=== PATIENT | male | born 1970 | race Caucasian/White ===

== ENCOUNTER 2021-03-16 07:37 | Outpatient (CLI) | payer OTHER | END 2021-03-16 07:38 | disposition home or self-care (01) | LOC: PET 07:37 | PROVIDERS: ATTEND Internal Medicine Hematology & Oncology | DX: C82.11 Follicular lymphoma grade II, lymph nodes of head, face, and neck (principal); R93.7 Abnormal findings on diagnostic imaging of other parts of musculoskeletal system; K80.20 Calculus of gallbladder without cholecystitis without obstruction | CPT/HCPCS: 78815; A9552 ==

== ENCOUNTER 2021-03-17 08:21 | Day surgery (SDC) | payer OTHER ==
[2021-03-15 13:57] VITALS: BMI 20.7
[~2021-03-17 08:21] MED LIST: Prevnar 13-Val Conj/PF 0.5 ML SYRINGE IM ONE
[2021-03-17 09:03] LABS: INR-International Normal Ratio 0.9; Prothrombin Time 12.4 sec (12.0-14.7)
[2021-03-17 09:04] LABS: PTT 29.8 sec (22.9-36.1)
[2021-03-17] MEDS ORDERED: Sodium Bicarbonate 2.5 MEQ/5 ML VIAL ONE (09:53)
[2021-03-17 11:25] VITALS: BP 107/73; TEMP 97.7
== END 2021-03-17 11:00 | disposition home or self-care (01) ==
LOC: CT 08:21
PROVIDERS: ATTEND Internal Medicine Hematology & Oncology
PROC: 0WBH3ZX Excision of Retroperitoneum, Percutaneous Approach, Diagnostic (ICD-10-PCS; principal; 2021-03-17)
DX: C85.10 Unspecified B-cell lymphoma, unspecified site (principal); Z87.891 Personal history of nicotine dependence
CPT/HCPCS: 49180; 72131; 77012; 85610; 85730; 88121; 88184; 88305; 88307; 88333; 88341; 88342; 88360; 88365

== ENCOUNTER 2021-04-06 14:35 | Outpatient (CLI) | payer OTHER | END 2021-04-06 14:36 | disposition home or self-care (01) | LOC: ULT 14:35 | PROVIDERS: ATTEND Internal Medicine Hematology & Oncology | DX: Z51.11 Encounter for antineoplastic chemotherapy (principal); C82.11 Follicular lymphoma grade II, lymph nodes of head, face, and neck; R00.1 Bradycardia, unspecified | CPT/HCPCS: 93306 ==

== ENCOUNTER 2021-04-23 17:37 | Emergency (ER) | payer OTHER ==
[~2021-04-23 17:37] MED LIST changes: +Iopamidol-370 76% 500 ML 1 ML ONE; -Prevnar 13-Val Conj/PF 0.5 ML SYRINGE IM ONE
[2021-04-23 18:02] LABS: Hemoglobin 13.4 g/dL (14.0-18.0); Mean Corpuscular HGB CONC 34.2 g/dL (32.0-36.0); Mean Corpuscular Hemoglobin 33.3 pg (27.0-31.0); Mean Corpuscular Volume 97.2 fL (78.0-98.0); RBC Distribution Width 11.3 % (11.5-14.5); Red Blood Cell (RBC) Count 4.02 mill/uL (4.70-6.10); White Blood Cell (WBC) Count 2.6 thou/uL (4.8-10.8)
[2021-04-23 18:17] LABS: ALT (SGPT) 26 U/L (8-55); AST (SGOT) 13 U/L (5-34); Albumin 4.1 g/dL (3.5-5.0); Alkaline Phosphatase 87 U/L (40-110); Anion Gap 11 mmol/L (10-20); BUN (Urea Nitrogen) 21 mg/dL (8.4-25.7); Bilirubin, Total 0.9 mg/dL (0.2-1.2); Calc. Creatinine Clearance 0 mL/min (70-130); Calcium 8.7 mg/dL (7.8-10.44); Carbon Dioxide 29 mmol/L (22-29); Chloride 105 mmol/L (98-107); Globulin 1.8 g/dL (2.4-3.5); Glucose 81 mg/dL (70-105); Potassium 3.3 mmol/L (3.5-5.1); Protein, Total 5.9 g/dL (6.0-8.3); Sodium 142 mmol/L (136-145)
[2021-04-23 18:18] LABS: Band 25 % (5-11); Eosinophils 1 % (0-10); Lymphocytes 13 % (21-51); MDiff Complete? YES; Mean Platelet Volume 9.1 fL (7.4-10.4); Neutrophil 61 % (42-75); Platelet Count 31 thou/uL (130-400); Platelet Morphology Comment Appears Decreased; RBC Morphology Normal
== END 2021-04-23 20:20 | disposition home or self-care (01) ==
LOC: ERS 17:37
DX: C82.90 Follicular lymphoma, unspecified, unspecified site (principal); R91.1 Solitary pulmonary nodule; R00.2 Palpitations
CPT/HCPCS: 71045; 71275; 80053; 84484; 85025; 93005; Q9967

== ENCOUNTER 2021-06-19 16:45 | Inpatient (IN) | payer OTHER ==
[2021-06-22] MEDS ORDERED: Fentanyl 100 MCG/2 ML VIAL ONE ×3 (09:16→13:54)
[2021-06-22] MEDS ORDERED: Bupivacaine PF 0.5% 30 ML VIAL ONE (09:16)
[2021-06-22] MEDS ORDERED: EPINEPHrine 1 MG/ML AMP ONE (09:16)
[2021-06-22] MEDS ORDERED: Ketorolac Tromethamine 30 MG/ML VIAL ONE (10:37)
[2021-06-22] MEDS ORDERED: Dexamethasone 20 MG/5 ML VIAL ONE (10:37)
[2021-06-22] MEDS ORDERED: PHENYLEPHRINE-NS 100 MCG/ML 10 ML SYRINGE ONE (10:37)
[2021-06-22] MEDS ORDERED: ePHEDrine 50 MG/ML VIAL ONE (10:37)
[2021-06-22] MEDS ORDERED: PROPOFOL 200 MG/20 ML VIAL ONE (10:37)
[2021-06-22] MEDS ORDERED: Lidocaine 1% PF 5 ML VIAL ONE (10:37)
[2021-06-22] MEDS ORDERED: Rocuronium Bromide 10 MG/ML (10ML VIAL) ONE (10:37)
[2021-06-22] MEDS ORDERED: Ondansetron PF 4 MG/2 ML Vial ONE (10:37)
[2021-06-22] MEDS ORDERED: HYDROcodone/Acetaminophen 5/325 mg Tablet PO PRN ×2 (12:27)
[2021-06-22] MEDS ORDERED: Cepastat Lozenges 1 LOZ PO PRN (12:27)
[2021-06-22] MEDS ORDERED: Fentanyl 100 MCG/2 ML VIAL SLOW IVP PRN (12:27)
[2021-06-22] MEDS ORDERED: Promethazine HCl 25 MG/ML VIAL IM PRN ×2 (12:27→12:49)
[2021-06-22] MEDS ORDERED: Sodium Chloride 0.9% 1,000 ML IV SCH (12:30)
[2021-06-22] MEDS ORDERED: Ondansetron HCl/PF 4 MG/2 ML Vial IVP PRN (12:49)
[2021-06-22] MEDS ORDERED: Promethazine HCl 25 MG/ML VIAL IVPB PRN (12:49)
[2021-06-22] MEDS ORDERED: HYDROmorphone 2 MG/ML VIAL SLOW IVP PRN (12:49)
[2021-06-22] MEDS ORDERED: PACU-Morphine 4MG/ML VIAL SLOW IVP PRN (12:49)
[2021-06-22] MEDS: Ondansetron PF 4 MG/2 ML Vial IVP PRN (15:20)
[2021-06-22] MEDS: CEFAZOLIN 2 GM in Premix Bag 1 BAG IVPB SCH ×2 (15:24→23:43)
[2021-06-22 16:12] VITALS: BMI 22.1
[2021-06-22] MEDS ORDERED: Prevnar 13-Val Conj/PF 0.5 ML SYRINGE IM ONE (16:45)
[2021-06-22] MEDS: Fentanyl 100 MCG/2 ML VIAL SLOW IVP PRN ×2 (16:55→21:03)
[2021-06-22] MEDS: Ketorolac Tromethamine 30 MG/ML VIAL IVP SCH ×2 (18:08→23:45)
[2021-06-23] MEDS: Ondansetron PF 4 MG/2 ML Vial IVP PRN (02:28)
[2021-06-23] MEDS: Fentanyl 100 MCG/2 ML VIAL SLOW IVP PRN (02:39)
[2021-06-23] MEDS: Ketorolac Tromethamine 30 MG/ML VIAL IVP SCH ×2 (06:33→12:42)
[2021-06-23] MEDS: CEFAZOLIN 2 GM in Premix Bag 1 BAG IVPB SCH (08:11)
[2021-06-23] MEDS ORDERED: Polyethylene Glycol 3350 17 GM Packet PO SCH (09:00)
[2021-06-23 10:55] VITALS: TEMP 98.2
[2021-06-23 12:38] VITALS: BP 121/73
== END 2021-06-23 12:30 | disposition home or self-care (01) | DRG 908 ==
LOC: SURG A 06-22 07:53 → EDSTATUS 06-22 16:45
PROVIDERS: ADMIT Thoracic Surgery (Cardiothoracic Vascular Surgery); ATTEND Thoracic Surgery (Cardiothoracic Vascular Surgery)
PROC: 0BP Respiratory System, Removal (ICD-10-PCS; principal; 2021-06-22)
PROC: 0BBJ0ZX Excision of Left Lower Lung Lobe, Open Approach, Diagnostic (ICD-10-PCS; 2021-06-22)
DX: T85.9XXA Unspecified complication of internal prosthetic device, implant and graft, initial encounter (principal); C82.90 Follicular lymphoma, unspecified, unspecified site; Y84.9 Medical procedure, unspecified as the cause of abnormal reaction of the patient, or of later complication, without mention of misadventure at the time of the procedure; Z87.891 Personal history of nicotine dependence
CPT/HCPCS: 71045; 80048; 85027; 88307; J0171; J0690; J1100; J1885; J2405; J2704; J3010; J3490; S0020; U0003; U0005

== ENCOUNTER 2021-07-17 15:31 | Outpatient (CLI) | payer OTHER | END 2021-07-17 15:32 | disposition home or self-care (01) | LOC: BICRAD 15:31 | PROVIDERS: ATTEND Thoracic Surgery (Cardiothoracic Vascular Surgery) | DX: C83.30 Diffuse large B-cell lymphoma, unspecified site (principal) | CPT/HCPCS: 71046 ==

== ENCOUNTER 2021-09-05 08:47 | Outpatient (CLI) | payer OTHER | END 2021-09-05 08:48 | disposition home or self-care (01) | LOC: PET 08:47 | PROVIDERS: ATTEND Internal Medicine Hematology & Oncology | DX: C82.11 Follicular lymphoma grade II, lymph nodes of head, face, and neck (principal); R91.8 Other nonspecific abnormal finding of lung field | CPT/HCPCS: 78815; A9552 ==

== ENCOUNTER 2024-05-18 20:20 | Emergency (ER) | payer BC | END 2024-05-19 01:39 | disposition home or self-care (01) | LOC: ERS 20:20 | DX: R07.89 Other chest pain (principal) | CPT/HCPCS: 36415; 71045; 71275; 80053; 83690; 83735; 84484; 85025; 93005; Q9967 ==

== ENCOUNTER 2024-05-20 23:48 | Emergency (ER) | payer BC ==
[2024-05-21 00:20] LABS: #Basophils 0.03 10x3/uL (0.0-0.2); %Basophils 0.8 % (0.0-1.0); %Lymphocytes 19.2 % (21.0-51.0); %Monocytes 11.1 % (0.0-10.0); %Neutrophils 67.6 % (42.0-75.0); Hematocrit 40.4 % (42.0-52.0); Hemoglobin 14.5 g/dL (14.0-18.0); Mean Corpuscular HGB CONC 35.9 g/dL (32.0-36.0); Mean Corpuscular Hemoglobin 32.5 pg (27.0-31.0); Mean Corpuscular Volume 90.6 fL (78.0-98.0); Mean Platelet Volume 9.6 fL (7.4-10.4); Platelet Count 155 10x3/uL (130-400); RBC Distribution Width 11.8 % (11.5-14.5); Red Blood Cell (RBC) Count 4.46 mill/uL (4.70-6.10)
[2024-05-21 00:54] LABS: ALT (SGPT) 28 U/L (8-55); AST (SGOT) 27 U/L (5-34); Albumin 4.2 g/dL (3.5-5.0); Alkaline Phosphatase 64 U/L (40-110); Anion Gap 15 mmol/L (10-20); BUN (Urea Nitrogen) 15 mg/dL (8.4-25.7); Bilirubin, Total 0.5 mg/dL (0.2-1.2); Calc. Creatinine Clearance 0 mL/min (70-130); Calcium 9.5 mg/dL (7.8-10.44); Carbon Dioxide 23 mmol/L (22-29); Chloride 107 mmol/L (98-107); Estimated GFR 79; Globulin 2.5 g/dL (2.4-3.5); Glucose 107 mg/dL (70-105); Lipase 38 U/L (8-78); Protein, Total 6.7 g/dL (6.0-8.3); Sodium 141 mmol/L (136-145)
[2024-05-21 00:57] LABS: Troponin I Less than 0.010 ng/mL (< 0.028)
[2024-05-21 01:25] LABS: Magnesium 1.9 mg/dL (1.6-2.6)
== END 2024-05-21 03:12 | disposition home or self-care (01) ==
LOC: ERS 23:48
DX: R07.2 Precordial pain (principal)
CPT/HCPCS: 36415; 71045; 80053; 83690; 83735; 84443; 84484; 85025; 93005

== ENCOUNTER 2024-06-01 17:39 | Observation (INO) | payer BC, OTHER ==
[2024-06-01] MEDS ORDERED: Ondansetron PF 4 MG/2 ML Vial ONE (18:47)
[2024-06-01] MEDS ORDERED: Morphine 4 MG/ML VIAL ONE (18:47)
[2024-06-01 19:38] LABS: #Basophils 0.03 10x3/uL (0.0-0.2); %Basophils 0.5 % (0.0-1.0); %Eosinophils 0.7 % (0.0-10.0); %Lymphocytes 9.1 % (21.0-51.0); %Monocytes 9.1 % (0.0-10.0); %Neutrophils 80.3 % (42.0-75.0); Hematocrit 39.8 % (42.0-52.0); Hemoglobin 13.8 g/dL (14.0-18.0); Mean Corpuscular HGB CONC 34.7 g/dL (32.0-36.0); Mean Corpuscular Hemoglobin 31.9 pg (27.0-31.0); Mean Corpuscular Volume 92.1 fL (78.0-98.0); Mean Platelet Volume 9.1 fL (7.4-10.4); Platelet Count 157 10x3/uL (130-400); RBC Distribution Width 11.9 % (11.5-14.5); Red Blood Cell (RBC) Count 4.32 mill/uL (4.70-6.10)
[2024-06-01 19:55] LABS: ALT (SGPT) 13 U/L (8-55); AST (SGOT) 19 U/L (5-34); Albumin 4.1 g/dL (3.5-5.0); Alkaline Phosphatase 50 U/L (40-110); Anion Gap 14 mmol/L (10-20); BUN (Urea Nitrogen) 13 mg/dL (8.4-25.7); Bilirubin, Total 0.8 mg/dL (0.2-1.2); Calc. Creatinine Clearance 0 mL/min (70-130); Calcium 9.1 mg/dL (7.8-10.44); Carbon Dioxide 21 mmol/L (22-29); Chloride 102 mmol/L (98-107); Estimated GFR 79; Globulin 2.2 g/dL (2.4-3.5); Glucose 86 mg/dL (70-105); Potassium 3.9 mmol/L (3.5-5.1); Protein, Total 6.3 g/dL (6.0-8.3); Sodium 133 mmol/L (136-145)
[2024-06-01 20:01] LABS: Troponin I Less than 0.010 ng/mL (< 0.028)
[2024-06-01] MEDS ORDERED: Acetaminophen 325 MG TAB PO PRN (23:35)
[2024-06-01] MEDS ORDERED: Ondansetron ODT 4 MG TAB PO PRN (23:35)
[2024-06-01] MEDS ORDERED: Morphine 2 MG/ML VIAL SLOW IVP PRN (23:35)
[2024-06-01] MEDS ORDERED: Ondansetron PF 4 MG/2 ML Vial IVP PRN (23:35)
[2024-06-01] MEDS ORDERED: Acetaminophen 650 MG Suppository PR PRN (23:35)
[2024-06-01] MEDS ORDERED: Aspirin Chewable 81 MG TAB ONE (23:45)
[2024-06-02 00:40] VITALS: BMI 21.4
[2024-06-02] MEDS: tiZANidine HCl 4 MG TAB PO PRN (01:27)
[2024-06-02] MEDS: Ketorolac Tromethamine 10 MG TAB PO PRN (04:19)
[2024-06-02 04:38] LABS: #Basophils 0.04 10x3/uL (0.0-0.2); %Basophils 0.8 % (0.0-1.0); %Eosinophils 1.9 % (0.0-10.0); %Lymphocytes 19.3 % (21.0-51.0); %Monocytes 11.5 % (0.0-10.0); %Neutrophils 66.3 % (42.0-75.0); Hematocrit 36.9 % (42.0-52.0); Mean Corpuscular HGB CONC 35.2 g/dL (32.0-36.0); Mean Corpuscular Hemoglobin 32.5 pg (27.0-31.0); Mean Corpuscular Volume 92.3 fL (78.0-98.0); Mean Platelet Volume 9.5 fL (7.4-10.4); Platelet Count 164 10x3/uL (130-400)
[2024-06-02 05:06] LABS: Troponin I 0.011 ng/mL (< 0.028)
[2024-06-02 05:28] LABS: Anion Gap 13 mmol/L (10-20); BUN (Urea Nitrogen) 13 mg/dL (8.4-25.7); Calc. Creatinine Clearance 76 mL/min (70-130); Calcium 9.2 mg/dL (7.8-10.44); Carbon Dioxide 25 mmol/L (22-29); Chloride 105 mmol/L (98-107); Estimated GFR 82; Glucose 92 mg/dL (70-105); Potassium 4.3 mmol/L (3.5-5.1); Sodium 139 mmol/L (136-145)
[2024-06-02] MEDS: Aspirin Chewable 81 MG TAB PO SCH (09:14)
[2024-06-02] MEDS: Famotidine 20 MG TAB PO SCH (09:14)
[2024-06-02] MEDS: Famotidine/PF 20 mg/2ml Vial SLOW IVP SCH (10:34)
[2024-06-02 13:00] VITALS: BP 108/75; TEMP 98.1
== END 2024-06-02 17:31 | disposition home or self-care (01) ==
LOC: ERS 17:39 → 2NO 22:29
PROVIDERS: ADMIT Student in an Organized Health Care Education/Training Program; ATTEND Internal Medicine
DX: H53.8 Other visual disturbances (principal); R07.89 Other chest pain; C82.80 Other types of follicular lymphoma, unspecified site; M79.10 Myalgia, unspecified site; V89.2XXA Person injured in unspecified motor-vehicle accident, traffic, initial encounter; Z79.899 Other long term (current) drug therapy; Z98.890 Other specified postprocedural states
CPT/HCPCS: 36415; 70450; 70496; 70498; 70551; 71045; 72125; 80048; 80053; 84484; 85025; 93005; 94760; 96374; 96375; G0378; J2270; J2405

== ENCOUNTER 2024-10-20 15:55 | Outpatient (CLI) | payer BC | END 2024-10-20 15:56 | disposition home or self-care (01) | LOC: BICRAD 15:55 | PROVIDERS: ATTEND Family Medicine | DX: R05.1 Acute cough (principal) | CPT/HCPCS: 71046 ==